=== PATIENT | male | born 1970 | race Caucasian/White ===

== ENCOUNTER → 2019-05-12 | Outpatient (CLI) | payer BC ==
--- NOTE | 2019-05-12 14:03 | RAD ---
Three-view lumbar spine radiographs 05/12/2019 CLINICAL HISTORY: Low back pain. AP and two lateral digital radiograph of the lumbar spine were obtained. No fracture or subluxation of the lumbar vertebrae is seen. Degenerative changes are seen involving the lower thoracic and mid and lower lumbar disc spaces consisting of vertebral endplate sclerosis and minimal to mild anterior vertebral body osteophyte formation. Mild degenerative changes are seen involving the facet joints at L4-5 and L5-S1. Calcifications are seen within the pelvis consistent with phleboliths. Scattered atherosclerotic calcification of the abdominal aorta and its branches is noted. IMPRESSION: Degenerative changes are seen involving lower thoracic and mid and lower lumbar spine as discussed above. No acute osseous abnormality is seen. Electronically signed by: Conrado Chacon MD (05/12/2019 2:00 PM) [id number]
== END | disposition home or self-care (01) ==
LOC: DXRAD 10:58
PROVIDERS: ATTEND Family Medicine
DX: M47.815 Spondylosis without myelopathy or radiculopathy, thoracolumbar region (principal); I70.0 Atherosclerosis of aorta; M25.78 Osteophyte, vertebrae; M47.818 Spondylosis without myelopathy or radiculopathy, sacral and sacrococcygeal region
CPT/HCPCS: 72100